=== PATIENT | male | born 1960 | race Caucasian/White ===

== ENCOUNTER 2021-07-14 18:17 | Observation (INO) ==
[2021-07-14 23:29] LABS: MEAN PLATELET VOLUME 7.1 fL (7.4-11.0)
[2021-07-14 23:34] LABS: BASOPHILS % (AUTO) 0.6 % (0.2-1.0); EOSINOPHILS # (AUTO) 0.3 x10^3/uL (0.0-0.2); EOSINOPHILS % (AUTO) 4.3 % (0.9-2.9); HEMATOCRIT 37.4 % (42.0-54.0); HEMOGLOBIN 12.6 g/dL (13.5-18.0); LYMPHOCYTES # (AUTO) 2.1 X10^3/uL (1.3-2.9); LYMPHOCYTES % (AUTO) 27.6 % (21.0-51.0); MEAN CORPUSCULAR HEMOGLOBIN 23.1 pg (27.0-34.0); MEAN CORPUSCULAR HGB CONC 33.7 g/dL (33.0-35.0); MEAN CORPUSCULAR VOLUME 68.7 fL (80.0-100.0); MONOCYTES # (AUTO) 0.9 x10^3/uL (0.3-0.8); MONOCYTES % (AUTO) 12.5 % (0.0-13.0); NEUTROPHILS # (AUTO) 4.2 x10^3/uL (2.2-4.8); PLATELET COUNT 244 X10^3/uL (150.0-450.0); RED BLOOD COUNT 5.44 X10^6/uL (4.7-6.0); RED CELL DISTRIBUTION WIDTH 18.5 % (11.6-16.5); WHITE BLOOD COUNT 7.6 X10^3/uL (3.6-10.0)
[2021-07-14] MEDS ORDERED: NITROSTAT SL PRN (23:40)
[2021-07-14 23:42] LABS: ALANINE AMINOTRANSFERASE 18 Units/L (12-78); ALBUMIN 2.8 g/dL (3.4-5.0); ALKALINE PHOSPHATASE 140 Units/L (46-116); ASPARTATE AMINO TRANSFERASE 12 Units/L (15-37); BLOOD UREA NITROGEN 22 mg/dL (7-18); CALCIUM 9.3 mg/dL (8.5-10.1); CARBON DIOXIDE 32.7 mmol/L (21-32); CHLORIDE 98 mmol/L (98-107); COR CA(FOR HYPOALB) 10.3 mg/dL (8.5-10.1); COR NA(FOR HYPERGLY) 135 mmol/L (136-145); CREATININE 0.98 mg/dL (0.70-1.30); SODIUM 134 mmol/L (136-145); TOTAL PROTEIN 7.1 g/dL (6.4-8.2); eGFR NON BLACK RACES > 60 (>60)
[2021-07-14] MEDS ORDERED: LR 1,000 ML IV 1,000 ML IV SCH (23:45)
[2021-07-14 23:54] LABS: MICROCYTOSIS 1+; PLATELET MORPHOLOGY COMMENT NORMAL (NORMAL)
--- NOTE | 2021-07-14 23:57 | NOTE.SOAP ---
Soap Note Note for Day of Date of Exam: 07/14/21 Subjective Data Subjective Data: 60 year old male with history of rest pain and non-healing wound to the dorsum of the left foot. Doppler study shows monophasic waveform from the distal left superficial femoral artery to the left ankle. CT angiogram confirms significant stenosis of the left superficial femoral artery with diminutive flow through the left posterior tibial artery, distal posterior tibial occlusion and reconstitution . Lexiscan stress test shows no reversible ischemia, there is evidence of an old fixed defect along the anterior and inferior larry with ejection fraction reduced to 24%. Assessment Assessment: Ischemic left lower extremity. Will plan intervention of the left lower extremity tomorrow Plan Plan: Will check Labs, start IV fluids and plan intervention tomorrow
[2021-07-15 01:37] VITALS: BMI 29.2
[2021-07-15] MEDS: NEURONTIN CAP 100 MG PO SCH ×3 (05:58→21:30)
[2021-07-15] MEDS: HumuLIN R SC PRN ×2 (06:18→20:06)
[2021-07-15] MEDS: ASPIRIN PO SCH (08:54)
[2021-07-15] MEDS: LASIX PO SCH ×2 (08:55→16:44)
[2021-07-15] MEDS: TOPROL XL PO SCH (08:55)
[2021-07-15] MEDS: ZESTRIL TAB 5 MG PO SCH (08:55)
[2021-07-15] MEDS ORDERED: LR 1,000 ML IV 1,000 ML IV ONE ×2 (12:35→14:35)
[2021-07-15] MEDS ORDERED: ANCEF VIAL 1 GRAM ONE (12:35)
[2021-07-15] MEDS ORDERED: NS 100 ML IV 100 ML ONE ×2 (12:35→15:50)
[2021-07-15] MEDS ORDERED: DUONEB 0.5 MG/3 MG (3 mL) NEB ONE ×2 (13:41→14:12)
[2021-07-15] MEDS: LR 1,000 ML IV 1,000 ML IV SCH ×2 (14:01)
[2021-07-15] MEDS ORDERED: FENTANYL VIAL INJ 100 mcg ONE (14:34)
[2021-07-15] MEDS ORDERED: PEPCID 20 MG IV PREMIX* 50 ML IV ONE (14:35)
[2021-07-15] MEDS ORDERED: OFIRMEV IV 1000 MG VIAL 1,000 MG/100 ML VIAL IV ONE (14:35)
[2021-07-15] MEDS ORDERED: MARCAINE 0.5% ONE (14:40)
[2021-07-15] MEDS ORDERED: HEPARIN SODIUM IN D5W 75,000 UNITS/1,500 ML BAG ONE (14:40)
[2021-07-15] MEDS ORDERED: HEPARIN SODIUM INJ 5000 UNITS ONE (14:40)
[2021-07-15] MEDS ORDERED: VERSED ONE (15:03)
[2021-07-15] MEDS ORDERED: DIPRIVAN VIAL ONE (15:03)
[2021-07-15] MEDS ORDERED: XYLOCAINE 2 % (PLAIN) ONE (15:03)
[2021-07-15] MEDS ORDERED: NEO-SYNEPHRINE INJ ONE (15:03)
[2021-07-15] MEDS ORDERED: EPHEDRINE SULFATE INJ ONE ×2 (15:03→15:50)
[2021-07-15] MEDS ORDERED: AMIDATE INJ 40 MG VIAL ONE (15:03)
[2021-07-15] MEDS ORDERED: KETALAR ONE (15:03)
[2021-07-15] MEDS: NS 1,000 ML IV 0 ML ONE ×2 (15:50)
[2021-07-15] MEDS ORDERED: NEO-SYNEPHRINE INJ 30 MG in NS 500 ML IV 500 ML IV PRN (15:53)
--- NOTE | 2021-07-15 17:19 | OR.IMMED ---
IMMEDIATE POST-OP NOTE Immediate Post-Op Note Pre-Op Diagnosis: Critical, limb ischemia left leg Post-Op Diagnosis: same Procedure: aortogram LLE a-gram, athrectomy and angioplasty left peroneal left AT Description of Procedure: see operative summary Surgeon/Running Rigger: Deena Findings: normal vessels on left leg above the knee, occluded left PT, sever disease both peroneal and AT on left leg with excellent reconstitution of the left PT Specimens Removed: plaque Estimated Blood Loss: 100 cc Drains: NONE Complications: none Progress Notes: To 2nd floor Condition: Stable Final Diagnosis: as above
[2021-07-15] MEDS: ZOSYN VIAL 3.375 GRAMS 3.375 G in NS 100 ML IV + SPIKE MINIBAG* 100 ML IV SCH ×2 (17:50→21:37)
[2021-07-15] MEDS ORDERED: NEURONTIN CAP 100 MG ONE (19:41)
[2021-07-15] MEDS ORDERED: XARELTO PO ONE (19:41)
[2021-07-15] MEDS ORDERED: CRESTOR TAB 10 MG PO ONE (19:41)
[2021-07-15] MEDS: XARELTO PO SCH (20:05)
[2021-07-15] MEDS ORDERED: CRESTOR TAB 10 MG PO SCH (21:00)
[2021-07-16] MEDS: LR 1,000 ML IV 1,000 ML IV SCH ×2 (03:51→05:40)
[2021-07-16] MEDS: NEURONTIN CAP 100 MG PO SCH ×2 (05:37→13:35)
[2021-07-16] MEDS: ZOSYN VIAL 3.375 GRAMS 3.375 G in NS 100 ML IV + SPIKE MINIBAG* 100 ML IV SCH ×2 (05:37→13:36)
[2021-07-16] MEDS: HumuLIN R SC PRN ×2 (05:49→12:12)
[2021-07-16] MEDS: ASPIRIN PO SCH (08:32)
[2021-07-16] MEDS: LASIX PO SCH (08:33)
[2021-07-16] MEDS: TOPROL XL PO SCH (08:33)
[2021-07-16] MEDS: ZESTRIL TAB 5 MG PO SCH (08:34)
[2021-07-16] MEDS: XARELTO PO SCH (08:34)
[2021-07-16 12:19] VITALS: BP 119/57
--- NOTE | 2021-07-16 15:26 | W.DIS.FURT ---
Summary of Discharge Discharge Summary of Date Date of Exam: 07/16/21 Admission Date Date of Admission: 07/14/21 Admission Diagnosis Hospital Course: 60 year old male with evidence of arterial ischemia of the left lower extremity. CT angiogram had confirmed significant disease below the trifurcation of the left leg. He had a non-healing wound to the left great toe and evidence of swelling, possible cellulitis possible venous insufficiency. He had a significant history of coronary disease and had a lexiscan stress test which showed no reversal ischemia. Evidence of old scar, and ejection fraction low at 24% . Admitted and placed on IV antibiotics. He was taken to the operating room yesterday and on table arteriogram confirmed severe disease of the left anterior tibial artery , severe disease of the left peroneal artery and a completely occluded left posterior tibial artery . The peroneal artery reconstituted the distal posterior tibial artery which was of significant size. He underwent athrectomy and balloon angioplasty of the left peroneal artery and angioplasty of the left anterior tibial artery. Post intervention arteriogram showed excellent results. He did well overnight. He has excellent Doppler signal in the dorsalis pedis with biphasic flow .He will be discharged home on his usual medicines to include aspirin . I will see him in the office next week and probably begin Xarelto 2. 5 mg BID .He will dress the wound with Neosporin. He will be given a prescription for clindamycin 150 mg by mouth four times a day * 10 days. In addition to the Xarelto that I will begin next week I believe he also has significant evidence of venous insufficiency. I will obtain a venous ultrasound and consider deep venous stenting of possible iliac vein compression in the near future of the left leg and possibly the right leg as well . Vital Signs: Vital Signs (72 hours) 07/15/21 00:00 07/15/21 04:00 07/15/21 08:00 Temperature 97.0 F L 98.8 F 98.2 F Pulse Rate [Right Brachial] 55 L 92 H 79 Respiratory Rate 27 H 24 18 Blood Pressure [Right Arm] 149/94 133/79 132/68 O2 Sat by Pulse Oximetry 100 98 97 07/15/21 12:00 07/15/21 15:30 07/15/21 17:45 Temperature 98.7 F 97.6 F 97.6 F Pulse Rate [Right Brachial] 79 89 84 Respiratory Rate 20 22 22 Blood Pressure [Right Arm] 110/61 117/66 124/67 O2 Sat by Pulse Oximetry 99 96 96 07/15/21 18:00 07/15/21 18:15 07/15/21 18:45 Temperature Pulse Rate [Right Brachial] 83 86 82 Respiratory Rate 20 22 22 Blood Pressure [Right Arm] 121/66 127/66 126/69 O2 Sat by Pulse Oximetry 95 96 100 07/15/21 19:45 07/15/21 20:45 07/15/21 21:45 Temperature 97.6 F Pulse Rate [Right Brachial] 83 82 84 Respiratory Rate 22 20 20 Blood Pressure [Right Arm] 120/57 105/56 117/56 O2 Sat by Pulse Oximetry 99 100 99 07/15/21 22:45 07/15/21 23:51 07/16/21 04:00 Temperature 97.8 F 98.0 F 98.8 F Pulse Rate [Right Brachial] 88 88 92 H Respiratory Rate 20 18 18 Blood Pressure [Right Arm] 112/59 109/62 132/67 O2 Sat by Pulse Oximetry 98 97 99 07/16/21 08:00 07/16/21 12:00 Temperature 98.6 F 98.4 F Pulse Rate [Right Brachial] 93 H 86 Respiratory Rate 18 18 Blood Pressure [Right Arm] 106/55 119/57 O2 Sat by Pulse Oximetry 96 99 Labs: Laboratory Last Values WBC 7.6 X10^3/uL (3.6-10.0) 07/14/21 23:18 RBC 5.44 X10^6/uL (4.7-6.0) 07/14/21 23:18 Hgb 12.6 g/dL (13.5-18.0) L 07/14/21 23:18 Hct 37.4 % (42.0-54.0) L 07/14/21 23:18 MCV 68.7 fL (80.0-100.0) L 07/14/21 23:18 MCH 23.1 pg (27.0-34.0) L 07/14/21 23:18 MCHC 33.7 g/dL (33.0-35.0) 07/14/21 23:18 RDW 18.5 % (11.6-16.5) H 07/14/21 23:18 Plt Count 244 X10^3/uL (150.0-450.0) 07/14/21 23:18 Plt Count Comment Adequate (ADEQUATE) 07/14/21 23:18 MPV 7.1 fL (7.4-11.0) L 07/14/21 23:18 Neut % (Auto) 55.0 % (42.0-75.0) 07/14/21 23:18 Lymph % (Auto) 27.6 % (21.0-51.0) 07/14/21 23:18 Rooks % (Auto) 12.5 % (0.0-13.0) 07/14/21 23:18 Eos % (Auto) 4.3 % (0.9-2.9) H 07/14/21 23:18 Baso % (Auto) 0.6 % (0.2-1.0) 07/14/21 23:18 Neut # (Auto) 4.2 x10^3/uL (2.2-4.8) 07/14/21 23:18 Lymph # (Auto) 2.1 X10^3/uL (1.3-2.9) 07/14/21 23:18 Rooks # (Auto) 0.9 x10^3/uL (0.3-0.8) H 07/14/21 23:18 Eos # (Auto) 0.3 x10^3/uL (0.0-0.2) H 07/14/21 23:18 Baso # (Auto) 0.0 X10^3/uL (0.0-0.1) 07/14/21 23:18 Absolute Nucleated RBC 0.0 /100WBC 07/14/21 23:18 Plt Morphology Comment Normal (NORMAL) 07/14/21 23:18 RBC Morphology Abnormal (NORMAL) 07/14/21 23:18 Microcytosis 1+ A 07/14/21 23:18 Sodium 134 mmol/L (136-145) L 07/14/21 23:18 Corrected Sodium 135 mmol/L (136-145) L 07/14/21 23:18 Potassium 4.1 mmol/L (3.5-5.1) 07/14/21 23:18 Chloride 98 mmol/L (98-107) 07/14/21 23:18 Carbon Dioxide 32.7 mmol/L (21-32) H 07/14/21 23:18 BUN 22 mg/dL (7-18) H 07/14/21 23:18 Creatinine 0.98 mg/dL (0.70-1.30) 07/14/21 23:18 Est GFR (MDRD) Af Amer > 60 (>60) 07/14/21 23:18 Est GFR (MDRD) Non-Af > 60 (>60) 07/14/21 23:18 Glucose 149 mg/dL (65-99) H 07/14/21 23:18 POC Glucose (mg/dL) 299 mg/dL (65-99) H 07/16/21 11:48 Calcium 9.3 mg/dL (8.5-10.1) 07/14/21 23:18 Corrected Calcium 10.3 mg/dL (8.5-10.1) H 07/14/21 23:18 Total Bilirubin 0.20 mg/dL (0.2-1.0) 07/14/21 23:18 AST 12 Units/L (15-37) L 07/14/21 23:18 ALT 18 Units/L (12-78) 07/14/21 23:18 Alkaline Phosphatase 140 Units/L (46-116) H 07/14/21 23:18 Total Protein 7.1 g/dL (6.4-8.2) 07/14/21 23:18 Albumin 2.8 g/dL (3.4-5.0) L 07/14/21 23:18 Globulin 4.3 g/dL (2.5-4.5) 07/14/21 23:18 Albumin/Globulin Ratio 0.7 Ratio (1.1-2.1) L 07/14/21 23:18 SARS CoV-2 RNA Rapid MARISA Negative (NEGATIVE) 07/14/21 21:15 Reason For Visit: CELLULITIS/ISCHEMIC LEFT FOOT Discharge Date Discharge Date: 07/16/21 Discharge Diagnosis All Active Problems (Updated 07/16/21 @ 15:25 by Elvin Shaffer) Critical lower limb ischemia (Acute) Cellulitis of left leg (Acute) Plan of Treatment: Continue with present treatment and follow up plan. Pt is to keep follow up appointment as instructed and take medications as ordered. Discharge Medications Discharge Medications: No Known Drug Allergies Allergy (Verified 07/14/21 23:58) CONTINUE taking the following medications donepezil 5 mg PO DAILY 07/15/21 [History] furosemide [Lasix] 40 mg PO DAILY 07/15/21 [History] gabapentin 100 mg PO TID 07/15/21 [History] lisinopril 2.5 mg PO DAILY 07/15/21 [History] metformin 1,000 mg PO BID 07/15/21 [History] metoprolol succinate 25 mg PO BID 07/15/21 [History] montelukast [Singulair] 10 mg PO HS 07/15/21 [History] nitroglycerin 0.4 mg SUBLINGUAL PRN PRN 07/15/21 [History] rosuvastatin [Crestor] 40 mg PO DAILY 07/15/21 [History] thiamine HCl (vitamin B1) 100 mg PO DAILY 07/15/21 [History] New Prescriptions clindamycin HCl 150 mg PO QID 10 Days #40 cap 07/16/21 [Rx] oxycodone-acetaminophen [Percocet] 1 tab PO Q6H PRN #30 tab MDD 4 07/16/21 [Rx] Discharge Disposition Assessment: Excellent result of angioplasty of trifurcation vessels left leg. Anticipate quick healing of the left foot wound . Discharge Disposition: good Discharge Condition: good Discharge Plan Discharge Plan Hospital Course: 60 year old male with evidence of arterial ischemia of the left lower extremity. CT angiogram had confirmed significant disease below the trifurcation of the left leg. He had a non-healing wound to the left great toe and evidence of swelling, possible cellulitis possible venous insufficiency. He had a significant history of coronary disease and had a lexiscan stress test which showed no reversal ischemia. Evidence of old scar, and ejection fraction low at 24% . Admitted and placed on IV antibiotics. He was taken to the operating room yesterday and on table arteriogram confirmed severe disease of the left anterior tibial artery , severe disease of the left peroneal artery and a completely occluded left posterior tibial artery . The peroneal artery reconstituted the distal posterior tibial artery which was of significant size. He underwent athrectomy and balloon angioplasty of the left peroneal artery and angioplasty of the left anterior tibial artery. Post intervention arteriogram showed excellent results. He did well overnight. He has excellent Doppler signal in the dorsalis pedis with biphasic flow .He will be discharged home on his usual medicines to include aspirin . I will see him in the office next week and probably begin Xarelto 2. 5 mg BID .He will dress the wound with Neosporin. He will be given a prescription for clindamycin 150 mg by mouth four times a day * 10 days. In addition to the Xarelto that I will begin next week I believe he also has significant evidence of venous insufficiency. I will obtain a venous ultrasound and consider deep venous stenting of possible iliac vein compression in the near future of the left leg and possibly the right leg as well . Patient Disposition: HOME HEALTH SERVICE Condition: Stable Health Concerns: Post Hospitalization: new medications and changes needed to prevent readmission or further decline. Pt educated and given instructions on all concerns. Care Plan Goals: Problem: Pain/Alteration in Comfort Goal: Improve/ Resolve Pain; Achieve Pain Tolerance Instructions: Take pain medications as prescribed. Contact your primary care provider if your pain is unrelieved or worsens. Follow up with primary care provider as directed. Plan of Treatment: Continue with present treatment and follow up plan. Pt is to keep follow up appointment as instructed and take medications as ordered. Assessment: Excellent result of angioplasty of trifurcation vessels left leg. Anticipate quick healing of the left foot wound . Prescriptions: New clindamycin HCl 150 mg Capsule 150 mg PO QID 10 Days Qty: 40 RF: 0 oxycodone-acetaminophen [Percocet] 5-325 mg Tablet 1 tab PO Q6H MDD 4 PRN (Reason: Pain) Qty: 30 RF: 0 Continued donepezil 5 mg tablet 5 mg PO DAILY RF: 0 thiamine HCl (vitamin B1) 100 mg Tablet 100 mg PO DAILY RF: 0 metformin 1,000 mg tablet 1,000 mg PO BID RF: 0 nitroglycerin 0.4 mg Tablet, Sublingual 0.4 mg sublingual PRN PRNRF: 0 montelukast [Singulair] 10 mg Tablet 10 mg PO HS RF: 0 furosemide [Lasix] 20 mg Tablet 40 mg PO DAILY RF: 0 gabapentin 100 mg capsule 100 mg PO TID RF: 0 metoprolol succinate 25 mg tablet extended release 24 hr 25 mg PO BID RF: 0 lisinopril 2.5 mg tablet 2.5 mg PO DAILY RF: 0 rosuvastatin [Crestor] 40 mg Tablet 40 mg PO DAILY RF: 0 Follow ups/Referrals Follow ups/Referrals: Elvin Shaffer [Primary Care Provider] - 07/20/21 11:00 am Instructions Instructions: Fall Prevention in the Home, Adult, [id number], Peripheral Vascular Disease, [id number], Atherectomy, Care After, Atherectomy, Cellulitis, Adult, [id number] Stand Alone Forms: Precautions for MELISSA, [facility], Patient Portal, Social Distancing
--- NOTE | 2021-07-17 16:22 | DR.OPNOTE ---
OP NOTE Pre-Op Diagnosis: Ischemic left lower extremity, non-healing wound left great toe Post-Op Diagnosis: same Procedure Date Date Of Procedure: 07/15/21 Procedure: Atherectomy and balloon angioplasty left peroneal artery, balloon angioplasty left anterior tibial artery . NARRATIVE : This patient was taken to the operative suite and placed in the supine position and given IV sedation which was supervised by myself. The right groin and entire left leg prepped and draped in sterile fashion. Time out for the procedure obtained. Ultrasound used to identify the right common femoral artery and ultrasound used to guide puncture of the white common femoral artery after injecting 0.5 % Marcaine having been placed over the right common femoral artery .Incision made over the 0.012 inch guidewire and a micro sheath placed into the right common femoral artery. The 0. 012 inch wire exchanged for a 0. 035 inch Advantage Glidewire and the micro sheath exchanged for a 5 Romanian vascular sheath. Patient was heparinized with 5000 units of Heparin and 3000 units were repeated at 1 hour. Omni catheter placed over the guide wire into the aorta and power injector used to perform a diagnostic aortogram which showed a normal aorta and normal internal and external iliac arteries. Omni catheter used to thread the wire down the left side and the Omni catheter exchange for a Trailblazer catheter and sequential diagnostic arteriogram carried out of the left leg showing a normal femoral artery, normal superficial femoral artery and normal popliteal artery. Below the knee, the left posterior tibial artery was occluded and reconstituted distally through a diseased left peroneal artery. The left anterior tibial artery was also very diseased as well. The short vascular sheath in the right common femoral artery was exchanged for a 7 Romanian destination sheath which was parked in the left common femoral artery. 0.018 inch Trailblazer catheter was used with a 0.018 inch V-wire to traverse the diseased peroneal artery all the way to the ankle as selective catheterization. Through the Trailblazer catheter the 0. 018 inch wire was exchanged for a 0. 014 in wire and the Hawk one device threaded over this wire and used to perform athrectomy of the left peroneal artery. Hawk one device removed and the peroneal artery ballooned open with a 3 mm by 120 mm Chocolate balloon. The results were not satisfactory therefore we change to a 3. 5 mm x 220 mm [employer] Hung balloon which was inflated for 1 minute. Post procedure arteriogram showed excellent result of the peroneal artery. Again, there was cross over filling of the posterior tibial artery to the ankle provided by the peroneal artery. 0. 014 inch wire and the 0.018 inch Trailblazer catheter was used to traverse the diseased anterior tibial artery down to the normal ankle and selective catherization of this carried out. The anterior tibial artery was ballooned open with the 3. 5 millimeter by 220 mm starting balloon. Post-procedure arteriogram showed excellent result. The Trailblazer catheter and 0. 014 inch wire removed and the destination sheath pulled back into the aorta. 0.035 inch Advantage glidewire was placed in the destination sheath and it exchanged for the Angio-seal device which was used to close the puncture of the right common femoral artery. Dressing applied to the right femoral l needle stick and the patient taken to the recovery room in good condition. Type of Anesthesia: Local (0.5% Marcaine) Anesthesia Comment: plus MAC Findings: normal aorta, normal iliac arteries, normal left superficial femoral artery, normal left popliteal artery, completely occluded left posterior tibial artery with reconstruction distally by the diseased left peroneal artery, severely diseased left anterior tibial artery . Type of Fluids Used:: Lactated Ringers Total Amount of Fluid Infused:: 350 cc Urine output: 100 cc EBL: 100 cc Drains/Tubes Placed: None Complications:: none Needle/Sponge Count:: correct Disposition/Condition: Pt. tolerated procedure without difficulty. Taken to PACU in stable condition.
== END 2021-07-16 13:50 | disposition home health service (06) ==
LOC: MED/SURG
PROVIDERS: ADMIT Surgery; ATTEND Surgery
DX: E11.65 Type 2 diabetes mellitus with hyperglycemia; I70.222 Atherosclerosis of native arteries of extremities with rest pain, left leg; Z20.822 Contact with and (suspected) exposure to COVID-19; L03.116 Cellulitis of left lower limb; I10 Essential (primary) hypertension; R94.31 Abnormal electrocardiogram [ECG] [EKG]